=== PATIENT | female | born 1960 | race Caucasian/White ===

== ENCOUNTER → 2019-09-26 | Outpatient (CLI) | payer OTHER ==
[~2019-09-26] MED LIST: AMLO10TA7 PO; ASPI-555 PO; ATOR10 PO; FLUOXETINE PO; GLIPIZIDE PO; HYDR-4153 PO; HYDR25TA PO; LEVO50TA11 PO; LISI40TA4 PO; METF-444 PO; METOPROLOL PO; MINO5POW PO; SITA100T12 PO
== END | disposition home or self-care (01) ==
LOC: OIH 07:38
PROVIDERS: ATTEND Internal Medicine Cardiovascular Disease
DX: Z13.6 Encounter for screening for cardiovascular disorders (principal)
CPT/HCPCS: 75571

== ENCOUNTER 2019-12-08 08:00 | Observation (INO) | payer OTHER, MEDICARE ==
[2019-12-05 12:51] LABS: APPEARANCE,URINE Clear (CLEAR); BILIRUBIN,URINE Negative (NEGATIVE); COLOR,URINE Yellow (YELLOW); GLUCOSE, URINE (UA) Negative (NEGATIVE); KETONES,URINE Negative (NEGATIVE); LEUKOCYTE ESTERASE ,URINE Trace (NEGATIVE); NITRATE,URINE Negative (NEGATIVE); OCCULT BLOOD,URINE Negative (NEGATIVE); PH,URINE 5.5 (5.0-8.0); PROTEIN,URINE Negative (NEGATIVE); UROBILINOGEN,URINE 0.2 mg/dL (0.2-1.0)
[2019-12-05 12:56] LABS: INR 0.94 (0.85-1.15); PROTHROMBIN TIME 9.9 SEC (9.6-11.6)
[2019-12-05 12:59] VITALS: BP 159/65
[2019-12-05 13:10] LABS: RBC,URINE 0-1 /HPF (0-1)
[2019-12-05 13:11] LABS: BACTERIA,URINE Rare /HPF (None Seen); WBC,URINE 0-1 /HPF (0-1)
--- NOTE | 2019-12-05 17:59 | NUR ---
Advised Doctor Jason of urine results with trace of leukest, new orders to collect urine cx, called lab and spoke to Heike and advised of new order.
[2019-12-08] VITALS (28 sets, daily range): BP systolic 99–154; BP diastolic 43–78
[~2019-12-08] VITALS: Ht 158.8 cm; Wt 105.2 kg
[~2019-12-08 08:00] MED LIST changes: -ASPI-555 PO; +CETI10TA57 PO; +CYCL30DR OU; +DULO30CA52 PO; +FERR325T22 PO; -FLUOXETINE PO; +GLIM2TAB30 PO; -GLIPIZIDE PO; -METF-444 PO; +METF-446 PO; +METO100T14 PO; -METOPROLOL PO; +MONT10TA26 PO; +PANT40TA25 PO; +POTA99TA21 PO
[2019-12-08] MEDS ORDERED: PROPOFOL 10 MG/ML 20ML VIAL IV ONE (10:19)
[2019-12-08] MEDS ORDERED: SUCCINYLCHOLINE 200MG/10ML SYR ONE (10:19)
[2019-12-08] MEDS ORDERED: ROCURONIUM 10MG/1ML SYR 10 MG/ML ML ONE ×3 (10:19→14:49)
[2019-12-08] MEDS ORDERED: LIDOCAINE PF 2% 5ML ABBOJECT ONE (10:19)
[2019-12-08] MEDS ORDERED: ROPIVACAINE 0.5% 5MG/ML 30ML IJ ONE (10:20)
[2019-12-08] MEDS ORDERED: FENTANYL CITRATE PF 50 MCG/1 ML 2ML VIAL ONE (10:20)
[2019-12-08] MEDS ORDERED: TRANEXAMIC ACID 1000MG/10ML ONE ×2 (10:24→16:36)
[2019-12-08] MEDS ORDERED: CEFAZOLIN SODIUM 1 GM VIAL ONE ×2 (10:24→21:40)
[2019-12-08] MEDS: VANCOMYCIN 1GM+NS 250ML 250 ML IV SCH ×2 (10:30→11:32)
[2019-12-08] MEDS ORDERED: MINO10TA3 PO (10:44)
[2019-12-08] MEDS ORDERED: ACETAMINOPHEN EXTRA STRENGTH 500 MG TABLET ONE (10:51)
[2019-12-08] MEDS ORDERED: METOCLOPRAMIDE 10 MG/2 ML VIAL ONE (10:51)
[2019-12-08] MEDS ORDERED: KETOROLAC TROMETHAMINE 15MG/ML ONE (10:51)
[2019-12-08] MEDS ORDERED: CELECOXIB 200 MG CAP ONE (10:52)
[2019-12-08] MEDS: CEFAZOLIN SODIUM 1 GM VIAL ONE ×2 (11:20→12:13)
[2019-12-08] MEDS ORDERED: MIDAZOLAM HCL 1 MG/ML 2ML VIAL ONE ×2 (11:35→17:01)
[2019-12-08] MEDS ORDERED: EPHEDRINE SULFATE 50 MG/ML AMPULE ONE (12:04)
[2019-12-08] MEDS ORDERED: GLYCOPYRROLATE 1 MG/5 ML SYRINGE ONE ×2 (12:19→15:33)
[2019-12-08] MEDS ORDERED: SODIUM CHLORIDE 0.9% 10 ML VIAL ONE (12:30)
[2019-12-08] MEDS ORDERED: PHENYLEPHRINE HCL 10 MG/ML 1ML VIAL IV ONE ×3 (12:30→12:55)
[2019-12-08] MEDS ORDERED: CEFAZOLIN SODIUM 1 GM VIAL IRRIG ONE (12:54)
[2019-12-08] MEDS ORDERED: NEOSTIGMINE 5MG/5ML SYR IV ONE (15:27)
[2019-12-08] MEDS: SODIUM CHLORIDE 0.9% 1000ML 1,000 ML IV SCH (15:41)
[2019-12-08] MEDS ORDERED: TRAMADOL HCL 50 MG TABLET PO PRN (15:45)
[2019-12-08] MEDS ORDERED: FERROUS FUMARATE 324 MG TABLET PO PRN (15:45)
[2019-12-08] MEDS ORDERED: OXYCODONE HCL 5 MG TAB PO PRN (15:45)
[2019-12-08] MEDS: ACETAMINOPHEN EXTRA STRENGTH 500 MG TABLET PO SCH (15:45)
[2019-12-08] MEDS ORDERED: LIDOCAINE HCL-MPF 1% 2ML VIAL IV PRN (15:45)
[2019-12-08] MEDS ORDERED: DiphenhydrAMINE HCL 50 MG/ML VIAL IVP PRN (15:45)
[2019-12-08] MEDS ORDERED: POTASSIUM CHLORIDE 20MEQ/100ML 100 ML IV PRN (15:45)
[2019-12-08] MEDS ORDERED: POTASSIUM CHLORIDE 10% ELIXIR 20 MEQ/15 ML UDCUP PO PRN (15:45)
[2019-12-08] MEDS ORDERED: TEMAZEPAM 15 MG CAPSULE PO PRN (15:45)
[2019-12-08] MEDS ORDERED: POTASSIUM CHLORIDE 20 MEQ ERTAB PO PRN (15:45)
[2019-12-08] MEDS ORDERED: CALCIUM CARBONATE 500 MG TABLET PO PRN (15:45)
[2019-12-08] MEDS: INSULIN HUMULIN R 100 UNIT/ML 3ML SQ SCH ×2 (16:30→21:00)
[2019-12-08] MEDS ORDERED: MEPERIDINE-PF 25 MG/ML SYG ONE ×2 (16:43→16:54)
--- NOTE | 2019-12-08 18:20 | NUR ---
post op arrived to floor with family present. pt is awake, alert and oriented. denies any shortness of breath and/or hip pain. complaints of right shoulder pain. Pt has CANDIDO dressing dry and intact, flashing green light. no patrick cath present. post op vitals started, NS @100, clear liquid diet started. continue to monitor.
[2019-12-08] MEDS: OXYCODONE HCL 5 MG TAB PO PRN ×2 (18:22→22:13)
[2019-12-08] MEDS: GLIMEPIRIDE 2 MG TABLET PO SCH (20:01)
[2019-12-08] MEDS: CELECOXIB 200 MG CAP PO SCH (20:01)
[2019-12-08] MEDS: MONTELUKAST SODIUM 10 MG TAB PO SCH (20:01)
[2019-12-08] MEDS: FERROUS SULFATE 325 MG TABLET.DR PO SCH (20:01)
[2019-12-08] MEDS: ATORVASTATIN CALCIUM 10 MG TABLET PO SCH (20:01)
[2019-12-08] MEDS: DULOXETINE HCL 30 MG CAP PO SCH (20:01)
[2019-12-08] MEDS: METFORMIN HCL 500 MG TABLET PO SCH (20:02)
[2019-12-08] MEDS: PREGABALIN 25 MG CAP PO SCH (20:02)
[2019-12-08] MEDS: KETOROLAC TROMETHAMINE 15MG/ML IV PRN (20:10)
[2019-12-08] MEDS: MINOXIDIL 2.5 MG TAB PO SCH (21:00)
[2019-12-08] MEDS: METOPROLOL TARTRATE 50 MG TAB PO SCH (21:00)
[2019-12-08] MEDS: HYDRALAZINE HCL 25 MG TABLET PO SCH (21:00)
[2019-12-08] MEDS: LISINOPRIL 40 MG TABLET PO SCH (21:00)
[2019-12-08] MEDS: CEFAZOLIN 3GM /D5W 100ML 100 ML IV SCH (21:39)
--- NOTE | 2019-12-08 23:00 | NUR ---
ACTIVITY PATIENT ASSISTED TO EDGE OF BED TO DANGLE LEGS PER MD PROTOCOL. PATIENT TOLERATED WELL AND ASSISTED BACK TO BED.
[2019-12-09] MEDS: VANCOMYCIN 1GM+NS 250ML 250 ML IV SCH ×2 (00:01→10:28)
[2019-12-09] MEDS: ACETAMINOPHEN EXTRA STRENGTH 500 MG TABLET PO SCH ×4 (00:02→23:45)
[2019-12-09] MEDS: SODIUM CHLORIDE 0.9% 1000ML 1,000 ML IV SCH ×2 (02:51→11:41)
[2019-12-09 03:00] VITALS: BP 116/72
--- NOTE | 2019-12-09 04:22 | NUR ---
NO VOID PATIENT UNABLE TO VOID ON HER OWN AND FEELS HER BLADDER FULL. PATIENT WAS THEN BLADDER SCANNED TO FIND 513 ML OF FLUID IN HER BLADDER. PATIENT WAS THEN STRAIGHT CATHETERIZED TO PULL OUT 1100 ML OF CLEAR YELLOW URINE.
[2019-12-09 04:41] LABS: HEMATOCRIT 27.5 % (36-48); MEAN CORPUSCULAR HEMOGLOBIN 28.4 pg (27.0-33.0); MEAN CORPUSCULAR HGB CONC 32.7 g/dL (32.0-36.0); MEAN CORPUSCULAR VOLUME 86.8 fL (79-99); PLATELET COUNT (AUTO) 296 K/uL (130-400); RED BLOOD CELL COUNT(AUTO) 3.17 MIL/uL (4.00-5.50); RED CELL DISTRIBUTION WIDTH 13.7 % (11.0-15.5); WHITE BLOOD COUNT (AUTO) 13.6 K/uL (4.8-10.8)
[2019-12-09] MEDS: CEFAZOLIN 3GM /D5W 100ML 100 ML IV SCH (04:45)
[2019-12-09 04:53] LABS: CREATININE 1.1 mg/dL (0.5-1.5); POTASSIUM 3.8 mmol/L (3.5-5.1)
[2019-12-09] MEDS ORDERED: LEVOTHYROXINE 50 MCG TABLET ONE (04:55)
[2019-12-09] MEDS ORDERED: CEFAZOLIN SODIUM 1 GM VIAL ONE (04:56)
[2019-12-09] MEDS: LEVOTHYROXINE 50 MCG TABLET PO SCH (05:18)
[2019-12-09] MEDS: INSULIN HUMULIN R 100 UNIT/ML 3ML SQ SCH ×4 (05:44→20:10)
[2019-12-09] MEDS: PANTOPRAZOLE SODIUM 40 MG TABLET.DR PO SCH (07:33)
[2019-12-09] MEDS: OXYCODONE HCL 5 MG TAB PO PRN ×3 (07:37→20:10)
[2019-12-09 07:53] VITALS: BP 144/75
[2019-12-09] MEDS: Cyclosporine (Restasis) 1 DROP OU SCH ×2 (09:00→20:10)
--- NOTE | 2019-12-09 09:55 | NUR ---
[id number] patient signed NICHOLAS Letter,faxed NICHOLAS Letter to [phone] and placed in chart under consent tab
--- NOTE | 2019-12-09 10:16 | NUR ---
DCP CM met with pt discussed dc plans. Pt is independent prior to surgery, lives at home with coutami Ross . Pt verbalized she has a standard walker no wheels, [id number], shower chair, cane, provider 25hrs/wk(coutami Huerta). Denies any other equipments/services. Feels safe to go back home, cousin will be able to assist with transportation and needs as necessary. Agreeable for home w/, JAMES signed for [facility]. DC plan to home w/HH. CM to cont to follow up. Addendum: 12/09/19 at 1017 by MAXIME BERUMEN LVN Amended: Links added.
--- NOTE | 2019-12-09 10:18 | NUR ---
CM Note: [facility] pending approval CM faxed order and clinicals to [facility], confirmation received. Spoke to Ebonie w/[facility], will wait for clinicals to be received. Pt pending approval. Primary nurse aware. CM to cont to follow up.
[2019-12-09] MEDS: CETIRIZINE HCL 5 MG TABLET PO SCH (10:25)
[2019-12-09] MEDS: MINOXIDIL 2.5 MG TAB PO SCH ×2 (10:25→20:05)
[2019-12-09] MEDS: METOPROLOL TARTRATE 50 MG TAB PO SCH ×2 (10:26→20:04)
[2019-12-09] MEDS: LINAGLIPTIN 5 MG TABLET PO SCH (10:26)
[2019-12-09] MEDS: APIXABAN 2.5 MG TABLET PO SCH ×2 (10:26→20:04)
[2019-12-09] MEDS: DULOXETINE HCL 30 MG CAP PO SCH ×2 (10:26→20:03)
--- NOTE | 2019-12-09 10:26 | NUR ---
CM Note: [facility] approval CM spoke to Ebonie hutton/[facility], pt has approval. Safe to dc home via private car once MD clear. Primary nurse aware. CM to cont to follow up.
[2019-12-09] MEDS: AMLODIPINE BESYLATE 5 MG TAB PO SCH (10:27)
[2019-12-09] MEDS: METFORMIN HCL 500 MG TABLET PO SCH ×2 (10:27→20:04)
[2019-12-09] MEDS: HYDROCHLOROTHIAZIDE 25 MG TABLET PO SCH (10:27)
[2019-12-09] MEDS: HYDRALAZINE HCL 25 MG TABLET PO SCH ×2 (10:27→20:03)
[2019-12-09] MEDS: PREGABALIN 25 MG CAP PO SCH ×2 (10:27→20:03)
[2019-12-09] MEDS: CELECOXIB 200 MG CAP PO SCH ×2 (10:27→20:04)
--- NOTE | 2019-12-09 10:27 | NUR ---
CM Note: Dr Gomez made aware approved for [facility].
[2019-12-09] MEDS: POLYETHYLENE GLYCOL 3350 17 GM POWD.PACK PO SCH (10:28)
[2019-12-09 11:23] VITALS: BP 141/76
--- NOTE | 2019-12-09 16:13 | NUR ---
PATIENT UNABLE TO VOID , PALPATION OF BLADDER EXTENDED, STRAIGHT CATH WITH 1000 CC RETURN, RESULT REPORT TO DR LOPEZ ORDERS TO KEEP CATHETER IN PLACE AND CONSULT UROLOGY , DR CASEY CHANGE MANAGEMENT ADMINISTRATOR PAGED
[2019-12-09 16:26] VITALS: BP 126/68
--- NOTE | 2019-12-09 17:30 | NUR ---
DR CASEY RETURNED PAGE STATED PATIENT CAN GO HOME WITH BAY AND HAVE HOME HEALTH DO BLADDER TRAILS, IF PATIENT STILL CANNOT VOID IN 3-4 DAYS HAVE HER FOLLOW-UP UP WITH HIS OFFICE
[2019-12-09 19:22] VITALS: BP 132/58
[2019-12-09] MEDS: GLIMEPIRIDE 2 MG TABLET PO SCH (20:04)
[2019-12-09] MEDS: MONTELUKAST SODIUM 10 MG TAB PO SCH (20:04)
[2019-12-09] MEDS: FERROUS SULFATE 325 MG TABLET.DR PO SCH (20:04)
[2019-12-09] MEDS: LISINOPRIL 40 MG TABLET PO SCH (20:04)
[2019-12-09] MEDS: ATORVASTATIN CALCIUM 10 MG TABLET PO SCH (20:04)
[2019-12-09] MEDS: ONDANSETRON HCL 4 MG/2 ML VIAL IVP PRN (21:22)
[2019-12-09 23:08] VITALS: BP 108/55
[2019-12-10] MEDS: OXYCODONE HCL 5 MG TAB PO PRN ×3 (00:56→21:43)
[2019-12-10 03:20] VITALS: BP 120/59
[2019-12-10] MEDS: LEVOTHYROXINE 50 MCG TABLET PO SCH (04:50)
[2019-12-10] MEDS: PANTOPRAZOLE SODIUM 40 MG TABLET.DR PO SCH ×2 (05:45→08:56)
[2019-12-10] MEDS: INSULIN HUMULIN R 100 UNIT/ML 3ML SQ SCH ×4 (05:48→21:00)
[2019-12-10] MEDS: ACETAMINOPHEN EXTRA STRENGTH 500 MG TABLET PO SCH ×3 (07:48→23:45)
[2019-12-10 08:45] VITALS: BP 121/69
[2019-12-10] MEDS: LINAGLIPTIN 5 MG TABLET PO SCH (08:55)
[2019-12-10] MEDS: MINOXIDIL 2.5 MG TAB PO SCH ×2 (08:55→20:26)
[2019-12-10] MEDS: CETIRIZINE HCL 5 MG TABLET PO SCH (08:55)
[2019-12-10] MEDS: METFORMIN HCL 500 MG TABLET PO SCH ×2 (08:55→20:26)
[2019-12-10] MEDS: DULOXETINE HCL 30 MG CAP PO SCH ×2 (08:55→20:27)
[2019-12-10] MEDS: POLYETHYLENE GLYCOL 3350 17 GM POWD.PACK PO SCH (08:55)
[2019-12-10] MEDS: CELECOXIB 200 MG CAP PO SCH ×2 (08:55→20:26)
[2019-12-10] MEDS: HYDROCHLOROTHIAZIDE 25 MG TABLET PO SCH (08:56)
[2019-12-10] MEDS: AMLODIPINE BESYLATE 5 MG TAB PO SCH (08:56)
[2019-12-10] MEDS: METOPROLOL TARTRATE 50 MG TAB PO SCH ×2 (08:56→20:27)
[2019-12-10] MEDS: HYDRALAZINE HCL 25 MG TABLET PO SCH ×2 (08:56→20:27)
[2019-12-10] MEDS: APIXABAN 2.5 MG TABLET PO SCH ×2 (08:56→20:26)
[2019-12-10] MEDS: PREGABALIN 25 MG CAP PO SCH ×2 (08:58→20:28)
[2019-12-10] MEDS: Cyclosporine (Restasis) 1 DROP OU SCH ×2 (10:54→20:16)
[2019-12-10] MEDS: LACTULOSE 20 GM/30 ML UDCUP PO SCH (10:54)
[2019-12-10 11:46] VITALS: BP 121/66
--- NOTE | 2019-12-10 13:00 | NUR ---
CM Note: cancel HH, pending ins auth for [facility] CM met with pt as per pt request, prefer to go to [facility] for rehab, JAMES signed. Dr Gomez made aware, agreeable, order entered. Faxed order, clinicals, PT, and PAS[facility], confirmation received. Spoke to Ankita hutton/[facility], will come eval pt today and send for auth, aware dcp today/once approved. Pt pending ins auth and acceptance. Primary nurse aware. CM to cont to follow up.
[2019-12-10 16:21] VITALS: BP 102/52
[2019-12-10] MEDS: ONDANSETRON HCL 4 MG/2 ML VIAL IVP PRN (16:44)
[2019-12-10 20:00] VITALS: BP 137/64
[2019-12-10] MEDS: ATORVASTATIN CALCIUM 10 MG TABLET PO SCH (20:26)
[2019-12-10] MEDS: LISINOPRIL 40 MG TABLET PO SCH (20:27)
[2019-12-10] MEDS: MONTELUKAST SODIUM 10 MG TAB PO SCH (20:27)
[2019-12-10] MEDS: GLIMEPIRIDE 2 MG TABLET PO SCH (20:27)
[2019-12-10] MEDS: FERROUS SULFATE 325 MG TABLET.DR PO SCH (20:28)
[2019-12-11 00:12] VITALS: BP 97/51
[2019-12-11] MEDS: OXYCODONE HCL 5 MG TAB PO PRN ×2 (01:41→21:59)
[2019-12-11 04:00] VITALS: BP 101/52
[2019-12-11] MEDS: LEVOTHYROXINE 50 MCG TABLET PO SCH (05:11)
[2019-12-11] MEDS: INSULIN HUMULIN R 100 UNIT/ML 3ML SQ SCH ×4 (06:00→20:23)
[2019-12-11] MEDS: PANTOPRAZOLE SODIUM 40 MG TABLET.DR PO SCH ×2 (06:03→09:00)
[2019-12-11] MEDS: ACETAMINOPHEN EXTRA STRENGTH 500 MG TABLET PO SCH ×3 (08:02→23:45)
[2019-12-11] MEDS: KETOROLAC TROMETHAMINE 15MG/ML IV PRN (08:03)
[2019-12-11 08:20] VITALS: BP 115/67
[2019-12-11] MEDS: POLYETHYLENE GLYCOL 3350 17 GM POWD.PACK PO SCH (08:46)
[2019-12-11] MEDS: LACTULOSE 20 GM/30 ML UDCUP PO SCH (08:47)
[2019-12-11] MEDS: DULOXETINE HCL 30 MG CAP PO SCH ×2 (08:47→20:10)
[2019-12-11] MEDS: CETIRIZINE HCL 5 MG TABLET PO SCH (08:47)
[2019-12-11] MEDS: MINOXIDIL 2.5 MG TAB PO SCH ×2 (08:49→20:09)
[2019-12-11] MEDS: CELECOXIB 200 MG CAP PO SCH ×2 (08:50→20:10)
[2019-12-11] MEDS: APIXABAN 2.5 MG TABLET PO SCH ×2 (08:50→20:11)
[2019-12-11] MEDS: METFORMIN HCL 500 MG TABLET PO SCH ×2 (08:50→20:09)
[2019-12-11] MEDS: PREGABALIN 25 MG CAP PO SCH ×2 (08:50→20:09)
[2019-12-11] MEDS: LINAGLIPTIN 5 MG TABLET PO SCH (08:51)
[2019-12-11] MEDS: METOPROLOL TARTRATE 50 MG TAB PO SCH ×2 (08:52→20:09)
[2019-12-11] MEDS: Cyclosporine (Restasis) 1 DROP OU SCH ×2 (08:55→21:00)
[2019-12-11] MEDS: HYDROCHLOROTHIAZIDE 25 MG TABLET PO SCH (09:00)
[2019-12-11] MEDS: AMLODIPINE BESYLATE 5 MG TAB PO SCH (09:00)
[2019-12-11] MEDS: HYDRALAZINE HCL 25 MG TABLET PO SCH ×2 (09:00→20:10)
[2019-12-11 11:55] VITALS: BP 123/63
--- NOTE | 2019-12-11 13:04 | NUR ---
CM Note: [facility] pending ins auth CM spoke to Ankita w/[facility], still pending ins auth at this time. CM spoke to Kirstin w/[facility], stated [facility] has not received any request from [facility]. Vaishnavi w/[facility] again, stated it was sent to [facility] yesterday. Pt still currently pending ins auth. Dr Gomez is aware. Primary nurse aware. CM Director Maria A HERNÁNDEZ made aware. CM to con to follow up.
[2019-12-11] MEDS ORDERED: HYDR-4457 PO (13:20)
[2019-12-11] MEDS ORDERED: APIX2.5T PO (13:20)
[2019-12-11] MEDS ORDERED: BISACODYL 10 MG SUPP.RECT RC PRN (15:45)
--- NOTE | 2019-12-11 16:45 | NUR ---
CM Note: [facility] CM met with pt updated w/POC, aware [facility] still pending ins auth. Discussed if agreeable for other facility at this point. Pt verbalized she is, JAMES signed for [facility]. Faxed order, clinicals, PT, and [facility] to [facility], confirmation received. Spoke to Bonita, will come eval pt. Pt pending ins auth and acceptance. Primary nurse aware. Dr Gomez aware and agreeable for plan [facility]. CM to cont to follow up.
[2019-12-11 16:46] VITALS: BP 127/65
[2019-12-11] MEDS: ATORVASTATIN CALCIUM 10 MG TABLET PO SCH (20:09)
[2019-12-11] MEDS: LISINOPRIL 40 MG TABLET PO SCH (20:10)
[2019-12-11] MEDS: MONTELUKAST SODIUM 10 MG TAB PO SCH (20:10)
[2019-12-11] MEDS: FERROUS SULFATE 325 MG TABLET.DR PO SCH (20:10)
[2019-12-11] MEDS: GLIMEPIRIDE 2 MG TABLET PO SCH (20:10)
[2019-12-11 20:29] VITALS: BP 154/65
[2019-12-12] MEDS: OXYCODONE HCL 5 MG TAB PO PRN (01:50)
[2019-12-12 04:00] VITALS: BP 138/70
[2019-12-12] MEDS: LEVOTHYROXINE 50 MCG TABLET PO SCH (04:44)
[2019-12-12] MEDS: PANTOPRAZOLE SODIUM 40 MG TABLET.DR PO SCH ×2 (06:06→08:24)
[2019-12-12] MEDS: INSULIN HUMULIN R 100 UNIT/ML 3ML SQ SCH ×2 (06:15→11:30)
[2019-12-12] MEDS: ACETAMINOPHEN EXTRA STRENGTH 500 MG TABLET PO SCH ×2 (07:45→15:16)
[2019-12-12 08:00] VITALS: BP 145/96
[2019-12-12] MEDS: POLYETHYLENE GLYCOL 3350 17 GM POWD.PACK PO SCH (08:22)
[2019-12-12] MEDS: PREGABALIN 25 MG CAP PO SCH (08:23)
[2019-12-12] MEDS: DULOXETINE HCL 30 MG CAP PO SCH (08:23)
[2019-12-12] MEDS: CETIRIZINE HCL 5 MG TABLET PO SCH (08:23)
[2019-12-12] MEDS: METFORMIN HCL 500 MG TABLET PO SCH (08:24)
[2019-12-12] MEDS: HYDROCHLOROTHIAZIDE 25 MG TABLET PO SCH (08:24)
[2019-12-12] MEDS: CELECOXIB 200 MG CAP PO SCH (08:25)
[2019-12-12] MEDS: LINAGLIPTIN 5 MG TABLET PO SCH (08:25)
[2019-12-12] MEDS: APIXABAN 2.5 MG TABLET PO SCH (08:25)
[2019-12-12] MEDS: MINOXIDIL 2.5 MG TAB PO SCH (08:25)
[2019-12-12] MEDS: HYDRALAZINE HCL 25 MG TABLET PO SCH (08:26)
[2019-12-12] MEDS: AMLODIPINE BESYLATE 5 MG TAB PO SCH (08:26)
[2019-12-12] MEDS: METOPROLOL TARTRATE 50 MG TAB PO SCH (08:27)
[2019-12-12] MEDS: Cyclosporine (Restasis) 1 DROP OU SCH (09:00)
--- NOTE | 2019-12-12 10:47 | NUR ---
CM Note: Cancelled [facility], [facility] pending ins auth CM met with pt updated w/POC. Pt verbalized no longer wants to go to [facility] at this time, continue to follow through w/[facility]. Made aware pending ins auth at this time. Pt safe to transfer via [facility] transport van once approved. Dr Gomez made aware. Primary nurse aware. CM to cont to follow up.
[2019-12-12 11:00] VITALS: BP 134/68
--- NOTE | 2019-12-12 13:00 | NUR ---
CM Note: [facility] ins CM spoke to Bonita hutton/[facility], pt has ins auth. Pt safe to transfer via [facility] transport van. Dr Gomez made aware. Primary nurse aware. Pt updated. CM to cont to follow up.
--- NOTE | 2019-12-12 14:00 | NUR ---
INSTRUCTIONS DISCHARGE INSTRUCTIONS GIVEN TO PATIENT USING TEACH BACK. IV REMOVED WITH TIP INTACT. DIRECT PRESSURE APPLIED UNTIL BLEEDING CONTROLLED THE SITE COVERED WITH GAUZE AND SECURED WITH A BAND-AID. F/U APPOINTMENT MADE. PRESCRIPTIONS PLACED IN SNF PACKAGE. ALL PRINTED INFORMATION AND MD INSTRUCTIONS PLACED IN DISCHARGE PACKET. NO QUESTIONS OR CONCERNS VOICED. PENDING TRANSPORT VAN FROM [facility].
== END 2019-12-12 16:00 ==
LOC: DAH 08:00 → DAHIP 08:01 → DAH 08:01 → 4AH 16:35
PROVIDERS: ADMIT Orthopaedic Surgery; ATTEND Orthopaedic Surgery
DX: M87.052 Idiopathic aseptic necrosis of left femur (principal); M16.12 Unilateral primary osteoarthritis, left hip; E11.9 Type 2 diabetes mellitus without complications; I10 Essential (primary) hypertension; E78.5 Hyperlipidemia, unspecified; E03.9 Hypothyroidism, unspecified; Z96.653 Presence of artificial knee joint, bilateral; Z96.641 Presence of right artificial hip joint; Z96.612 Presence of left artificial shoulder joint; Z87.11 Personal history of peptic ulcer disease; E66.9 Obesity, unspecified; Z79.899 Other long term (current) drug therapy; Z68.41 Body mass index [BMI] 40.0-44.9, adult
CPT/HCPCS: 27130; 36415 ×2; 73503; 80048; 81001; 82948 ×16; 85027; 85610; 87088; 87641; 88304; 88311; 96365; 96366; 96367; 96375 ×2; 96376 ×2; 97039 ×8; 97116 ×6; 97161; 97530; A4215; A4221; A4222; A4223; A4344; A4649 ×5; A4663; A4930 ×2; A6207; A9272; C1769; C1776; G0378 ×94; G8978; G8979; G8980; G8981; G8982; G8983; J0330; J0690 ×5; J1885 ×3; J2001; J2175 ×2; J2250 ×2; J2370 ×3; J2405 ×3; J2704; J2710; J2765; J2795; J3010; J3370 ×3; J3490 ×5; J7030

== ENCOUNTER 2022-02-08 10:25 | Observation (INO) | payer OTHER, MEDICARE ==
[2022-02-06 09:55] VITALS: BP 189/95
[2022-02-06 10:16] LABS: EOSINOPHILS % (AUTO) 2.3 % (0.0-8.0); HEMATOCRIT 36.8 % (36-48); LYMPHOCYTES % (AUTO) 31.1 % (21.0-51.0); MEAN CORPUSCULAR HEMOGLOBIN 29.1 pg (27.0-33.0); MEAN CORPUSCULAR HGB CONC 33.4 g/dL (32.0-36.0); MONOCYTES % (AUTO) 6.7 % (3.0-13.0); NEUTROPHILS % (AUTO) 58.6 % (40.0-77.0); PLATELET COUNT (AUTO) 330 K/uL (130-400); RED BLOOD CELL COUNT(AUTO) 4.23 MIL/uL (4.00-5.50); RED CELL DISTRIBUTION WIDTH 13.2 % (11.0-15.5); WHITE BLOOD COUNT (AUTO) 11.4 K/uL (4.8-10.8)
[2022-02-06 10:22] LABS: CREATININE 0.7 mg/dL (0.5-1.5); POTASSIUM 5.5 mmol/L (3.5-5.1)
[2022-02-06 10:32] LABS: INR 0.95 (0.85-1.15); PROTHROMBIN TIME 10.4 SEC (9.6-11.6)
[2022-02-06 10:40] LABS: APPEARANCE,URINE Clear (CLEAR); BILIRUBIN,URINE Negative (NEGATIVE); COLOR,URINE Yellow (YELLOW); GLUCOSE, URINE (UA) Negative (NEGATIVE); KETONES,URINE Negative (NEGATIVE); LEUKOCYTE ESTERASE ,URINE Large (NEGATIVE); NITRATE,URINE Negative (NEGATIVE); OCCULT BLOOD,URINE Negative (NEGATIVE); PH,URINE 6.5 (5.0-8.0); PROTEIN,URINE Negative (NEGATIVE)
[2022-02-06 10:50] LABS: BACTERIA,URINE Rare /HPF (None Seen); RBC,URINE 0-1 /HPF (0-1); SQUAMOUS EPITHELIAL CELL,UR Few /HPF (0-2)
[2022-02-07] MEDS: VANCOMYCIN 2GM/500 ML BAG 500 ML IV SCH (11:00)
[2022-02-08] VITALS (19 sets, daily range): BP systolic 84–158; BP diastolic 48–84
[~2022-02-08] VITALS: Ht 160 cm; Wt 103.8 kg
[2022-02-08] MEDS: CLINDAMYCIN IVPB 900MG/50ML 50 ML IV SCH ×2 (06:00→15:33)
[~2022-02-08 10:25] MED LIST changes: +AEC81 PO; +ALBU8.5H8 IH; +AMLO-258 PO; -AMLO10TA7 PO; +ATOR20TA65 PO; +CETI10CA5 PO; -CETI10TA57 PO; +CHOL500051 PO; +CYCL30DR OP; -CYCL30DR OU; +DOCU100C33 PO; -DULO30CA52 PO; +DULO60CA64 PO; +FLUT16H NS; +LEVO50CA4 PO; -LEVO50TA11 PO; -LISI40TA4 PO; +LISI40TA9 PO; +MINO10TA3 PO; -MINO5POW PO; +MONT-39 PO; -MONT10TA26 PO; +ONDA-104 PO; -PANT40TA25 PO; +PANT40TA54 PO; +POTA99TA18 PO; -POTA99TA21 PO; -SITA100T12 PO; +SITA50TA PO
[2022-02-08] MEDS ORDERED: LACTATED RINGERS 1000ML 1,000 ML IV ONE (10:44)
[2022-02-08] MEDS ORDERED: LIDOCAINE PF 100MG/5ML (2%) SYRINGE 5ML ONE (11:59)
[2022-02-08] MEDS ORDERED: SUCCINYLCHOLINE CHLORIDE 20 MG/ML 10 ML VIAL ONE ×2 (11:59→12:37)
[2022-02-08] MEDS ORDERED: DEXAMETHASONE SOD PHOSPHATE 10MG/ML 1ML VIAL ONE (12:00)
[2022-02-08] MEDS ORDERED: ONDANSETRON 4MG INJ ONE (12:00)
[2022-02-08] MEDS ORDERED: GLYCOPYRROLATE 1 MG/5 ML SYRINGE ONE (12:01)
[2022-02-08] MEDS ORDERED: PROPOFOL 10 MG/ML 20ML VIAL IV ONE (12:01)
[2022-02-08] MEDS ORDERED: MIDAZOLAM HCL 1 MG/ML 2ML VIAL ONE (12:01)
[2022-02-08] MEDS ORDERED: ROCURONIUM 10MG/1ML SYR 10 MG/ML ML ONE ×2 (12:02→16:09)
[2022-02-08] MEDS ORDERED: FENTANYL CITRATE PF 50 MCG/1 ML 5ML AMP IV ONE (12:20)
[2022-02-08] MEDS ORDERED: PHENYLEPHRINE HCL 10 MG/ML 1ML VIAL IV ONE (12:27)
[2022-02-08 12:48] LABS: CREATININE 0.7 mg/dL (0.5-1.5); POTASSIUM 4.2 mmol/L (3.5-5.1)
[2022-02-08] MEDS ORDERED: ROPIVACAINE 0.5% 5MG/ML 30ML IJ ONE (13:04)
[2022-02-08] MEDS ORDERED: METOCLOPRAMIDE 10 MG/2 ML VIAL ONE (14:45)
[2022-02-08] MEDS ORDERED: ACETAMINOPHEN 500 MG TABLET ONE (14:45)
[2022-02-08] MEDS ORDERED: KETOROLAC 15MG/ML VIAL (15MG/ML) ONE (14:45)
[2022-02-08] MEDS ORDERED: CELECOXIB 200 MG CAP ONE (14:46)
[2022-02-08] MEDS ORDERED: TRANEXAMIC ACID 1000MG/10ML ONE ×2 (14:46→20:06)
[2022-02-08] MEDS: CLINDAMYCIN 900MG/6ML INJ ONE ×2 (16:20→16:25)
[2022-02-08] MEDS ORDERED: EPHEDRINE SULFATE 50 MG/ML AMPULE ONE ×2 (17:47→19:20)
[2022-02-08] MEDS ORDERED: POTASSIUM CHLORIDE 10% ELIXIR 20 MEQ/15 ML UDCUP PO PRN (19:00)
[2022-02-08] MEDS ORDERED: FE FUMARATE/FA/MV, MIN COMB#15 1 TAB PO PRN (19:00)
[2022-02-08] MEDS ORDERED: OXYCODONE HCL 5 MG TAB PO PRN (19:00)
[2022-02-08] MEDS ORDERED: ONDANSETRON 4MG INJ IVP PRN (19:00)
[2022-02-08] MEDS ORDERED: 0.9% NACL 250ML IV SCH (19:00)
[2022-02-08] MEDS ORDERED: LIDOCAINE HCL-MPF 1% 2ML VIAL IV PRN (19:00)
[2022-02-08] MEDS ORDERED: CALCIUM CARB 500MG PO PRN (19:00)
[2022-02-08] MEDS ORDERED: VANCOMYCIN 1G VIAL IVPB SCH (19:00)
[2022-02-08] MEDS ORDERED: POTASSIUM CHLORIDE 20MEQ/100ML 100 ML IV PRN (19:00)
[2022-02-08] MEDS ORDERED: TRAMADOL HCL 50 MG TABLET PO PRN (19:00)
[2022-02-08] MEDS ORDERED: TEMAZEPAM 15 MG CAPSULE PO PRN (19:00)
[2022-02-08] MEDS ORDERED: DiphenhydrAMINE HCL 50 MG/ML VIAL IVP PRN (19:00)
[2022-02-08] MEDS ORDERED: KCL 20 MEQ ERTAB PO PRN (19:00)
[2022-02-08] MEDS ORDERED: COMPOUND IV REFRIGERATED 1 EACH IVSOLN MISC PRN (19:30)
[2022-02-08] MEDS ORDERED: NON-FORMULARY MEDICATION 1 EACH (Ferrous Sulfate 325 MG) PO SCH (21:00)
[2022-02-08] MEDS ORDERED: MINOXIDIL 5 MG PO SCH (21:00)
[2022-02-08] MEDS ORDERED: NON-FORMULARY MEDICATION 1 EACH (Duloxetine HCl 60 MG) PO SCH (21:00)
[2022-02-08] MEDS ORDERED: NON-FORMULARY MEDICATION 1 EACH (Metoprolol Tartrate 100 MG) PO SCH (21:00)
[2022-02-08] MEDS: INSULIN HUMULIN R 100 UNIT/ML 3ML SQ SCH (21:00)
[2022-02-08] MEDS ORDERED: ATORVASTATIN 10 MG TABLET PO SCH (21:00)
[2022-02-08] MEDS ORDERED: FLUTICASONE PROPIONATE 50MCG/SPRAY 16 GM BOTTLE NS PRN (21:00)
[2022-02-08] MEDS: 0.9%NACL 1000ML 1,000 ML IV SCH (22:20)
[2022-02-08] MEDS: VANCOMYCIN 1.25GM/NS 250ML IVPB SCH ×2 (22:26)
[2022-02-08] MEDS: ACETAMINOPHEN 500 MG TABLET PO SCH (22:27)
[2022-02-08] MEDS: ATORVASTATIN 20 MG TABLET PO SCH (22:27)
[2022-02-08] MEDS: FERROUS SULFATE 325 MG TABLET.DR PO SCH (22:27)
[2022-02-08] MEDS: DOCUSATE SODIUM 100 MG CAP PO SCH (22:28)
[2022-02-08] MEDS: DULOXETINE HCL 30 MG CAP PO SCH (22:28)
[2022-02-08] MEDS: ONDANSETRON 4MG TABLET PO SCH (22:28)
[2022-02-08] MEDS: MONTELUKAST SODIUM 10 MG TAB PO SCH (22:29)
[2022-02-08] MEDS: ASPIRIN 81 MG EC TAB PO SCH (22:29)
[2022-02-08] MEDS: MINOXIDIL 2.5 MG TAB PO SCH (22:29)
[2022-02-08] MEDS: CELECOXIB 200 MG CAP PO SCH (22:29)
[2022-02-08] MEDS: LISINOPRIL 40 MG TABLET PO SCH (22:30)
[2022-02-08] MEDS: HYDRALAZINE 25MG TABLET PO SCH (22:30)
[2022-02-08] MEDS: METOPROLOL TARTRATE 50 MG TAB PO SCH (22:31)
[2022-02-09] VITALS (7 sets, daily range): BP systolic 119–144; BP diastolic 47–72
[2022-02-09] MEDS: CLINDAMYCIN IVPB 900MG/50ML 50 ML IV SCH ×2 (00:14→09:50)
[2022-02-09] MEDS: OXYCODONE HCL 5 MG TAB PO PRN ×2 (03:40→22:04)
[2022-02-09] MEDS: ACETAMINOPHEN 500 MG TABLET PO SCH ×4 (03:41→22:05)
[2022-02-09 04:09] LABS: HEMATOCRIT 30.4 % (36-48); MEAN CORPUSCULAR HEMOGLOBIN 27.6 pg (27.0-33.0); MEAN CORPUSCULAR HGB CONC 31.9 g/dL (32.0-36.0); MEAN CORPUSCULAR VOLUME 86.6 fL (79-99); RED BLOOD CELL COUNT(AUTO) 3.51 MIL/uL (4.00-5.50); RED CELL DISTRIBUTION WIDTH 13.4 % (11.0-15.5); WHITE BLOOD COUNT (AUTO) 12.2 K/uL (4.8-10.8)
[2022-02-09 04:20] LABS: CREATININE 0.8 mg/dL (0.5-1.5); POTASSIUM 3.8 mmol/L (3.5-5.1)
[2022-02-09] MEDS: 0.9%NACL 1000ML 1,000 ML IV SCH ×3 (05:00→10:27)
[2022-02-09] MEDS: LEVOTHYROXINE 50 MCG TABLET PO SCH (06:59)
[2022-02-09] MEDS: PANTOPRAZOLE 40 MG TAB DR PO SCH (07:03)
[2022-02-09] MEDS: INSULIN HUMULIN R 100 UNIT/ML 3ML SQ SCH ×4 (07:08→21:00)
[2022-02-09] MEDS: KETOROLAC 15MG/ML VIAL (15MG/ML) IV PRN ×2 (07:54→16:48)
[2022-02-09] MEDS ORDERED: NON-FORMULARY MEDICATION 1 EACH (Metformin HCl 1,000 MG) PO SCH (08:00)
[2022-02-09] MEDS ORDERED: NON-FORMULARY MEDICATION 1 EACH (Amlodipine Besylate 10 MG) PO SCH (09:00)
[2022-02-09] MEDS: HYDRALAZINE 25MG TABLET PO SCH ×2 (09:00→22:07)
[2022-02-09] MEDS: HYDROCHLOROTHIAZIDE 25 MG TABLET PO SCH (09:00)
[2022-02-09] MEDS ORDERED: NON-FORMULARY MEDICATION 1 EACH (Cetirizine HCl (Zyrtec) 10 MG) PO SCH (09:00)
[2022-02-09] MEDS: METOPROLOL TARTRATE 50 MG TAB PO SCH ×2 (09:00→22:07)
[2022-02-09] MEDS: CYCLOSPORINE OP SCH ×2 (09:00→21:00)
[2022-02-09] MEDS: AMLODIPINE 5 MG TAB PO SCH (09:00)
[2022-02-09] MEDS ORDERED: NON-FORMULARY MEDICATION 1 EACH (Levothyroxine Sodium (Levothyroxine) 50 MCG) PO SCH (09:00)
[2022-02-09] MEDS: POLYETHYLENE GLYCOL 3350 17 GM POWD.PACK PO SCH (09:00)
[2022-02-09] MEDS: METFORMIN HCL 500 MG TABLET PO SCH ×2 (09:23→16:33)
[2022-02-09] MEDS: MINOXIDIL 2.5 MG TAB PO SCH ×2 (09:23→22:04)
[2022-02-09] MEDS: GLIMEPIRIDE 2 MG TABLET PO SCH (09:24)
[2022-02-09] MEDS: ASPIRIN 81 MG EC TAB PO SCH ×2 (09:24→22:03)
[2022-02-09] MEDS: CELECOXIB 200 MG CAP PO SCH ×2 (09:24→22:03)
[2022-02-09] MEDS: DULOXETINE HCL 30 MG CAP PO SCH ×2 (09:24→22:03)
[2022-02-09] MEDS: CETIRIZINE HCL 5 MG TABLET PO SCH (09:27)
[2022-02-09] MEDS: VANCOMYCIN 2GM/500 ML BAG 500 ML IV SCH ×2 (10:24→10:25)
[2022-02-09] MEDS: VANCOMYCIN 1.25GM/NS 250ML IVPB SCH ×2 (13:50)
[2022-02-09] MEDS ORDERED: POTASSIUM GLUCONATE 99 MG PO SCH (21:00)
[2022-02-09] MEDS ORDERED: (Sitagliptin Phosphate (Januvia) 50 MG) PO SCH (21:00)
[2022-02-09] MEDS: ATORVASTATIN 20 MG TABLET PO SCH (22:02)
[2022-02-09] MEDS: MONTELUKAST SODIUM 10 MG TAB PO SCH (22:03)
[2022-02-09] MEDS: ONDANSETRON 4MG TABLET PO SCH (22:03)
[2022-02-09] MEDS: DOCUSATE SODIUM 100 MG CAP PO SCH (22:03)
[2022-02-09] MEDS: FERROUS SULFATE 325 MG TABLET.DR PO SCH (22:04)
[2022-02-09] MEDS: LISINOPRIL 40 MG TABLET PO SCH (22:06)
[2022-02-10 03:19] VITALS: BP 128/61
[2022-02-10] MEDS: ACETAMINOPHEN 500 MG TABLET PO SCH ×2 (04:42→11:42)
[2022-02-10] MEDS: PANTOPRAZOLE 40 MG TAB DR PO SCH (05:51)
[2022-02-10] MEDS: OXYCODONE HCL 5 MG TAB PO PRN (05:52)
[2022-02-10] MEDS: LEVOTHYROXINE 50 MCG TABLET PO SCH (05:52)
[2022-02-10] MEDS: INSULIN HUMULIN R 100 UNIT/ML 3ML SQ SCH ×3 (05:55→16:30)
[2022-02-10 08:00] VITALS: BP 119/64
[2022-02-10] MEDS: CYCLOSPORINE OP SCH (09:00)
[2022-02-10] MEDS: ASPIRIN 81 MG EC TAB PO SCH (09:33)
[2022-02-10] MEDS: CETIRIZINE HCL 5 MG TABLET PO SCH (09:34)
[2022-02-10] MEDS: DULOXETINE HCL 30 MG CAP PO SCH (09:34)
[2022-02-10] MEDS: HYDROCHLOROTHIAZIDE 25 MG TABLET PO SCH (09:34)
[2022-02-10] MEDS: METOPROLOL TARTRATE 50 MG TAB PO SCH (09:34)
[2022-02-10] MEDS: MINOXIDIL 2.5 MG TAB PO SCH (09:34)
[2022-02-10] MEDS: GLIMEPIRIDE 2 MG TABLET PO SCH (09:35)
[2022-02-10] MEDS: POLYETHYLENE GLYCOL 3350 17 GM POWD.PACK PO SCH (09:35)
[2022-02-10] MEDS: AMLODIPINE 5 MG TAB PO SCH (09:35)
[2022-02-10] MEDS: HYDRALAZINE 25MG TABLET PO SCH (09:35)
[2022-02-10] MEDS: CELECOXIB 200 MG CAP PO SCH (09:35)
[2022-02-10] MEDS: METFORMIN HCL 500 MG TABLET PO SCH ×2 (09:38→17:00)
[2022-02-10 12:04] VITALS: BP 99/57
[2022-02-10] MEDS ORDERED: HYDR-4060 PO (14:52)
[2022-02-10 20:52] VITALS: BP 134/96
[2022-02-11] MEDS ORDERED: BISACODYL 10 MG SUPP.RECT RC PRN (19:00)
== END 2022-02-10 18:00 | disposition home health service, planned readmission (86) ==
LOC: DAH 10:25 → 4BH 10:26
PROVIDERS: ADMIT Orthopaedic Surgery; ATTEND Orthopaedic Surgery
DX: M19.011 Primary osteoarthritis, right shoulder (principal); Z20.822 Contact with and (suspected) exposure to COVID-19; D17.21 Benign lipomatous neoplasm of skin and subcutaneous tissue of right arm; E11.9 Type 2 diabetes mellitus without complications; I10 Essential (primary) hypertension; E03.9 Hypothyroidism, unspecified; E78.5 Hyperlipidemia, unspecified; E66.9 Obesity, unspecified; Z79.899 Other long term (current) drug therapy; Z96.612 Presence of left artificial shoulder joint; Z96.643 Presence of artificial hip joint, bilateral; Z96.653 Presence of artificial knee joint, bilateral
CPT/HCPCS: 23472; 36415 ×3; 64415; 73030; 76942; 80048 ×3; 81001; 82948 ×8; 85025; 85027; 85610; 87088; 87635; 87641; 88305; 88311; 96365; 96366 ×3; 96367; 96372; 96375; 96376; 97039 ×4; 97116; 97161; 97530 ×4; A4215; A4221; A4222; A4223; A4344; A4565; A4649 ×2; A4663; A4930 ×2; A6206; A6219; C1776; C9803; G0168; G0378 ×45; J0330 ×2; J1100; J1815; J1885 ×3; J2001; J2250; J2370; J2405; J2704; J2765; J2795; J3010; J3370 ×5; J3490 ×8; J7030 ×2; J7050 ×3; J7120; Q0162 ×2

== ENCOUNTER → 2024-04-03 | Outpatient (CLI) | payer OTHER, MEDICARE ==
[~2024-04-03] MED LIST changes: +HYDR-4060 PO; -HYDR-4153 PO; +HYDR25TA67 PO
== END | disposition home or self-care (01) ==
LOC: RAH 07:50
PROVIDERS: ATTEND Family Medicine
DX: K57.30 Diverticulosis of large intestine without perforation or abscess without bleeding (principal); K76.0 Fatty (change of) liver, not elsewhere classified; N20.0 Calculus of kidney; I25.10 Atherosclerotic heart disease of native coronary artery without angina pectoris; M47.815 Spondylosis without myelopathy or radiculopathy, thoracolumbar region; M48.05 Spinal stenosis, thoracolumbar region; M48.07 Spinal stenosis, lumbosacral region; R93.2 Abnormal findings on diagnostic imaging of liver and biliary tract; R10.84 Generalized abdominal pain
CPT/HCPCS: 74150